=== PATIENT | male | born 1955 | race Caucasian/White ===

== ENCOUNTER 2018-03-25 12:25 | Emergency (ER) | payer MEDICARE ==
--- NOTE | 2018-03-25 12:35 | ED Physician Documentation ---
General Adult - HISTORIAN Historian: patient - HPI Stated Complaint: urinary retention after TURP Chief Complaint: Male Urogenital Problems Onset: hours (1) Timing: better Severity: mild Further Comments: yes (He states : Thursday he had a TURP and he was not able to complete the post test without the aide of a dockery cath. He reports that he was back at the [place] this am and he had irragation due to blood clots and inablitiy to pass urine. He states then about one hour ago he started to have the same urge and pressure. This am he was placed on oxybutin and he did start that this am. He states once he was at home he had the urge and pressure and blood came out around the cath through his penis which made he and his scared so they started to the hospital here and since he notes he has "barely any pain 2/10 " and no pressure. No fever. No abdominal pain) Last known Well Code/Unknown Code: Unknown - ROS CONST: no problems - PAST HX Past History: hypertension Surgeries/Procedures: other (TURP this week ) Immunizations: UTD Allergies/Adverse Reactions: Allergies Allergy/AdvReac Type Severity Reaction Status Date / Time No Known Allergies Allergy Verified 03/25/18 12:39 Home Medications: Ambulatory Orders Medication Instructions Recorded Allopurinol [Zyloprim] 300 mg PO DAILY 03/25/18 Atenolol 50 mg PO D 03/25/18 Lisinopril [Zestril] 20 mg PO D 03/25/18 Oxybutynin Chloride [Ditropan] 5 mg PO TID 03/25/18 Sulfamethoxazole/Trimethoprim 1 tab PO BID 03/25/18 [Bactrim DS] amLODIPine BESYLATE [Norvasc] 10 mg PO D 03/25/18 oxyCODONE HCL/ACETAMINOPHEN 5 - 10 mg PO Q6 03/25/18 [Percocet 5/325] - SOCIAL HX Smoking History: non-smoker Alcohol Use: none Drug Use: none - FAMILY HX Family History: No - REVIEWED ASSESSMENTS Nursing Assessment Reviewed: Yes Vitals Reviewed: Yes Progress - Progress Progress: 1330: lab results discussed. He states he feels fine now. No complaints. DG 1420: urine in cath bag without clots. pink urine noted in bag. he denies any pain. DG General Adult Physical Exam - PHYSICAL EXAM GENERAL APPEARANCE: no distress EENT: eye inspection normal NECK: normal inspection RESPIRATORY: no resp distress, chest non-tender, breath sounds normal CVS: reg rate & rhythm, heart sounds normal, equal pulses, no murmur ABDOMEN: soft, normal bowel sounds, no distension, non-tender RECTAL: other (penis exam within normal limits no swelling or bleeding noted ) BACK: normal inspection SKIN: warm/dry, normal color EXTREMITIES: non-tender, normal range of motion, no evidence of injury, no edema NEURO: oriented X3, CN's nml as tested, motor nml, sensation nml, mood/affect nml Discharge Clincal Impression: Urinary (tract) obstruction Referrals: Jomar Gomez DO [Primary Care Provider] - 2 Days Comments: 1. Continue to push fluids 2. Monitor cath bag 3. Return to ER or Urology for any pain or concerns Condition: Stable Disposition: 01 HOME, SELF-CARE Decision to Admit: NO Date of Decison to Admit: 03/25/18 Decision Time: 14:22
[2018-03-25 12:52] LABS: BASOPHILS % 0.3 (0.0-1.5); EOSINOPHILS % 1.4 % (0.0-6.8); MEAN CORPUSCULAR HEMOGLOBIN 31.7 pg (28.0-34.0); MEAN CORPUSCULAR VOLUME 93.3 fl (80.0-100.0); MONOCYTES % 4.8 % (0.0-11.0); NEUTROPHILS # 7.8 # k/uL (1.4-7.7)
[2018-03-25 12:59] LABS: eGFR (African) > 60; eGFR (Non-African) > 60
[2018-03-25] MEDS: 0.9 % SODIUM CHLORIDE 1,000 ML IV ONE (13:12)
[2018-03-25 14:29] VITALS: BP 126/72
== END 2018-03-25 14:25 | disposition home or self-care (01) ==
LOC: ED 12:25
DX: N13.9 Obstructive and reflux uropathy, unspecified (principal)
CPT/HCPCS: 80053; 85025; J7030; 96365; 99283; S1016